=== PATIENT | female | born 1940 | race Caucasian/White ===

== ENCOUNTER 2018-06-13 11:24 | Inpatient (IN) | payer MEDICARE ==
[~2018-06-13] VITALS: Ht 152.4 cm; Wt 56.2 kg
[2018-06-13] MEDS ORDERED: ONDANSETRON HCL/PF 4 MG/2 ML VIAL IVP ONE (11:30)
--- NOTE | 2018-06-13 11:40 | NUR ---
BIB [facility] FOR [facility], AT HOME, PT STATES "I TOOK TOO MUCH DILAUDID", C/O NAUSEA. DENIES PAIN. TO ER BED , HOOKED TO MONITOR, CHANGED TO GOWN, PROVIDED W WARM BLANKET, AWAITING MD HOPKINS.
--- NOTE | 2018-06-13 11:41 | NUR ---
DR BARKER AT BEDSIDE
[2018-06-13 11:59] LABS: BASOPHILS % (AUTO) 0.2 % (0.0-2.0); HEMATOCRIT 43 % (33-45); HEMOGLOBIN 14.1 g/dL (11.5-14.8); LYMPHOCYTES # (AUTO) 0.6 /CMM (0.8-4.8); LYMPHOCYTES % (AUTO) 4.8 % (20.0-44.0); MEAN CORPUSCULAR HGB CONC 33 g/dl (31.0-36.0); MEAN CORPUSCULAR VOLUME 92 fL (82-100); MONOCYTES # (AUTO) 0.6 /CMM (0.1-1.30); MONOCYTES % (AUTO) 4.4 % (2.0-12.0); NEUTROPHILS # (AUTO) 11.8 /CMM (1.8-8.9); NEUTROPHILS % (AUTO) 90.6 % (43.0-81.0); PLATELET COUNT (AUTO) 234 /CMM (150-450); RED BLOOD CELL COUNT(AUTO) 4.71 MIL/uL (4.0-5.2)
[2018-06-13 12:06] LABS: CALCIUM, SERUM 9.7 mg/dL (8.5-10.1); CARBON DIOXIDE 30 mmol/L (21-32); CHLORIDE 101 mmol/L (98-107); CREATININE 0.9 mg/dL (0.6-1.3); GLUCOSE 136 mg/dL (74-106); POTASSIUM 3.6 mmol/L (3.5-5.1); SODIUM SERUM 141 mmol/L (136-145); UREA NITROGEN, BLOOD 20 mg/dL (7-18)
[2018-06-13] MEDS ORDERED: ONDANSETRON HCL/PF 4 MG/2 ML VIAL ONE (12:06)
--- NOTE | 2018-06-13 12:08 | NUR ---
CALLED [employer]. TUBE FILLER WAS PAGED.
[2018-06-13 12:12] LABS: ALANINE AMINOTRANSFERASE 152 U/L (12-78); ALBUMIN 4.1 g/dL (3.4-5.0); ALKALINE PHOSPHATASE 97 U/L (46-116); ASPARTATE AMINOTRANSFERASE 173 U/L (15-37); BILIRUBIN,DIRECT 0.2 mg/dL (0.0-0.2); BILIRUBIN,TOTAL 0.8 mg/dL (0.2-1.0); TOTAL PROTEIN, SERUM 7.6 g/dL (6.4-8.2)
--- NOTE | 2018-06-13 12:45 | NUR ---
URINE SPECIMEN COLLECTED SENT TO LAB.
--- NOTE | 2018-06-13 12:48 | NUR ---
WHEELED OUT VIA [facility] FOR CT SCAN.
[2018-06-13 12:52] LABS: APPEARANCE,URINE Clear (CLEAR); BILIRUBIN,URINE Negative (NEGATIVE); BLOOD, URINE Trace-lysed Ery/uL (NEGATIVE); COLOR,URINE Yellow (YELLOW); KETONES,URINE 15 (NEGATIVE); LEUKOCYTE ESTERASE ,URINE Small (NEGATIVE); NITRITE, URINE Negative (NEGATIVE); PROTEIN,URINE 100 mg/dl (NEGATIVE); UGLUCOSE Negative (NEGATIVE)
[2018-06-13 12:54] LABS: WBC,URINE 21-50 /HPF (0-3)
[2018-06-13 12:55] LABS: BACTERIA,URINE Moderate /HPF (None Seen); SQUAMOUS EPITHELIAL CELL,UR Many /HPF (None Seen)
--- NOTE | 2018-06-13 14:03 | NUR ---
TELE BED 324-1 GIVEN
--- NOTE | 2018-06-13 14:18 | NUR ---
REPORT GIVEN TO BLAIR BERNABE OF TELE UNIT
--- NOTE | 2018-06-13 14:38 | NUR ---
MS SUPERVISOR FOOD CHECKERS AND CASHIERS NOTES Received Patient comfortable and resting in bed from ER with FRIEND at bedside. A/O x 3 with episodes of confusion. VS stable with no acute distress. Breathing even and unlabored with SPO2 at 98% on room air with no respiratory distress. Skin intact. Facial, shoulder and left arm discoloration noted. Pictures taken and placed in chart. 20g PIV on RIGHT HAND clean, dry, intact and flushing well. IVF NS running at 75ml/hr. Safety precautions in place. Sitter at bedside. Bed locked and set to lowest position with side rails x 2 up. All needs rendered at this time. Will continue to monitor.
[2018-06-13 15:22] VITALS: BP 166/90
[2018-06-13] MEDS ORDERED: HYDROCODONE/APAP 5/325MG 1 EACH TABLET PO PRN (17:00)
[2018-06-13] MEDS ORDERED: Z GUARD REMEDY 2 OZ OINT TP PRN (17:00)
[2018-06-13] MEDS ORDERED: MAG HYDROX/AL HYDROX/SIMETH 30 ML UDC PO PRN (17:00)
[2018-06-13] MEDS ORDERED: ZOLPIDEM TARTRATE 5 MG TABLET PO PRN (17:00)
[2018-06-13] MEDS ORDERED: MAGNESIUM HYDROXIDE 30 ML UDC PO PRN (17:00)
[2018-06-13] MEDS ORDERED: ACETAMINOPHEN 325 MG TABLET PO PRN (17:00)
[2018-06-13] MEDS: IV NS 0.9% 1,000 ML IV PRN (17:43)
[2018-06-13] MEDS: CEFTRIAXONE 1 G in IV D5W 50 ML IV SCH (17:43)
--- NOTE | 2018-06-13 19:25 | NUR ---
BULK SUGAR HANDLER OPENING NOTES: RECEIVED PT ON ROOM AND IS TOLERATING WELL. SITTER AT BEDSIDE. PT IS A/OX2. PT HAS R HAND #20G AND IS BEING INFUSED WITH IV NS AT 75ML/HR. PT ON TELE BOX AND READING SHOWS SR 95. SITTER AT BEDSIDE. BED KEPT IN LOW, LOCKED POSITION, AND SIDE RAILS X 2UP. WILL CONTINUE TO MONITOR PT.
--- NOTE | 2018-06-13 19:26 | NUR ---
MS RN CLOSING NOTES Patient comfortable and resting in bed. A/O x 3 with episodes of confusion. VS stable with no acute distress. Breathing even and unlabored on room air with no respiratory distress. Skin intact. Facial, shoulder and left arm discoloration noted. 20g PIV on RIGHT HAND clean, dry, intact and flushing well. IVF NS running at 75ml/hr. Safety precautions in place. Sitter at bedside. Bed locked and set to lowest position with side rails x 2 up. All needs rendered at this time. Will endorse plan of care to oncoming shift.
[2018-06-13 20:00] VITALS: BP 158/87
[2018-06-13] MEDS: ONDANSETRON HCL/PF 4 MG/2 ML VIAL IVP PRN (20:19)
--- NOTE | 2018-06-13 20:31 | NUR ---
MS BERNABE NOTES: PT COMPLAINING OF NAUSEA. PT WAS ADMINISTERED ZOFRAN 4 MG IV. WILL CONTINUE TO MONITOR. SITTER AT BEDSIDE WELL. Addendum: 06/13/18 at 2031 by GEE SILVA RN YURIY BERNABE
[2018-06-14] VITALS: BP 145/82
--- NOTE | 2018-06-14 01:35 | NUR ---
SPLICER APPRENTICE NOTES: JOY MORAN ON FLOOR; INFORMED HIM OF MOST RECENT TROPONIN 0.051 ; PER JOY MORAN, TO GET DR. RIVERS ON CASE .
[2018-06-14 04:00] VITALS: BP 166/93
--- NOTE | 2018-06-14 04:45 | NUR ---
JET PILOT NOTES: WHEN ASKED IF SHE IS IN PAIN, PT DENIES ANY PAIN. PT ATTEMPTING TO GET OUT OF BED. REORIENTED PT.
[2018-06-14] MEDS: IV NS 0.9% 1,000 ML IV PRN (05:59)
[2018-06-14 06:48] VITALS: BP 150/80
[2018-06-14 07:28] LABS: BASOPHILS % (AUTO) 0.3 % (0.0-2.0); HEMATOCRIT 41 % (33-45); HEMOGLOBIN 13.5 g/dL (11.5-14.8); LYMPHOCYTES # (AUTO) 0.8 /CMM (0.8-4.8); MEAN CORPUSCULAR HGB CONC 33 g/dl (31.0-36.0); MEAN CORPUSCULAR VOLUME 91 fL (82-100); MONOCYTES # (AUTO) 0.8 /CMM (0.1-1.30); MONOCYTES % (AUTO) 6.1 % (2.0-12.0); NEUTROPHILS # (AUTO) 11.3 /CMM (1.8-8.9); NEUTROPHILS % (AUTO) 87.6 % (43.0-81.0); PLATELET COUNT (AUTO) 223 /CMM (150-450); WHITE BLOOD COUNT (AUTO) 12.9 K/uL (4.3-11.0)
--- NOTE | 2018-06-14 07:34 | NUR ---
TELE/RN OPENING NOTE PATIENT IN BED IN STABLE CONDITION. A/O X 3, NO SIGNS OF ACUTE DISTRESS. NO COMPLAIN OF PAIN OR DISCOMFORT. ON TELE MONITOR NOTED WITH SR 79. ALL NEEDS ATTENDED TO. CALL LIGHT WITHIN REACH. WILL CONTINUE TO MONITOR TO ENSURE SAFETY.
[2018-06-14 07:53] LABS: CHOLESTEROL 175 mg/dL (<200); HDL CHOLESTEROL 93 mg/dL (40-60); LDL 66 mg/dL (0-99); THYROID STIMULATING HORMONE 1.681 uIU/mL (0.358-3.74); TRIGLYCERIDES 63 mg/dL (30-150)
[2018-06-14 07:59] LABS: ALANINE AMINOTRANSFERASE 86 U/L (12-78); ALBUMIN 3.3 g/dL (3.4-5.0); ALKALINE PHOSPHATASE 73 U/L (46-116); ASPARTATE AMINOTRANSFERASE 68 U/L (15-37); B-TYPE NATRIURETIC PEPTIDE 610 PG/ML (0-125); BILIRUBIN,TOTAL 0.6 mg/dL (0.2-1.0); CALCIUM, SERUM 8.9 mg/dL (8.5-10.1); CARBON DIOXIDE 30 mmol/L (21-32); CHLORIDE 100 mmol/L (98-107); CREATININE 0.8 mg/dL (0.6-1.3); GLUCOSE 109 mg/dL (74-106); MAGNESIUM 1.5 mg/dL (1.8-2.4); PHOSPHORUS 1.8 mg/dL (2.5-4.9); POTASSIUM 3.6 mmol/L (3.5-5.1); SODIUM SERUM 138 mmol/L (136-145); TOTAL PROTEIN, SERUM 6.3 g/dL (6.4-8.2); UREA NITROGEN, BLOOD 34 mg/dL (7-18)
[2018-06-14 08:30] VITALS: BP 157/75
[2018-06-14] MEDS: Magnesium 1GM/D5W 100ML PREMIX 100 ML IV SCH ×2 (09:42→10:54)
[2018-06-14] MEDS: NITROGLYCERIN 30 GM TUBE TP SCH ×2 (11:57→21:45)
[2018-06-14] MEDS ORDERED: Sodium Phosphate 15 MMOL in IV D5W 250 ML IV ONE (12:00)
--- NOTE | 2018-06-14 14:46 | NUR ---
MS/RN RECEIVED CALL FROM DR NOVAK GI DOCTOR WITH NEW ORDER FOR XR ESOPHAGRAM TODAY. NOTED AND CARRIED OUT PATIENT NOTIFIED.
[2018-06-14] MEDS: CEFTRIAXONE 1 G in IV D5W 50 ML IV SCH (16:38)
--- NOTE | 2018-06-14 17:24 | NUR ---
MS/RN SPOKE WITH NOÉ FROM RADIOLOGY DEPT. PER NOÉ THE XR ESOPHAGRAM WILL BE DONE TOMORROW SECONDARY TO NO RADIOLOGIST AVAILABLE AT THIS TIME, ALSO TO KEEP PATIENT NPO POST MIDNIGHT. SPOKE WITH DR NOVAK AND NOTIFIED REGARDING XR ESOPHAGRAM SCHEDULED FOR TOMORROW PER DR NOVAK AGREE WITH SCHEDULE CHANGE AND ALSO ORDERED TO START PATIENT ON CLEAR LIQUID DIET. PATIENT NOTIFIED.
--- NOTE | 2018-06-14 18:06 | NUR ---
MS/RN CLOSING NOTE PATIENT IN BED IN STABLE CONDITION. A/O X 1-2. NO SIGNS OF ACUTE DISTRESS. NO COMPLAIN OF PAIN OR DISCOMFORT. ALL NEEDS ATTENDED TO. CALL LIGHT WITHIN REACH. WILL ENDORSE TO NEXT SHIFT FOR CONTINUITY OF CARE.
--- NOTE | 2018-06-14 19:45 | NUR ---
MS DEMONSTRATOR SALES INITIAL NOTES RECEIVED PT IN BED RESTING BUT AROUSE TO TOUCH, NOT IN ANY DISTRESS NOTED. RESPIRATION EVEN AND NON-LABORED. SKIN NOTED SOME BRUISING ON HER LEFT SIDE OF HER FACE AND HER SHOULDER. IVF NS AT 75ML/HR STILL INFUSING ON HER RIGHT HAND PATENT AND INTACT. RE-ORIENTED WHERE SHE AT. ON SEMI FOWLERS POSITION WITH SIDE RAILS X2 UP AND BED IN LOW AND LOCK IN POSITION. SITTER AT THE BEDSIDE FOR SAFETY. WILL CONTINUE MONITORING.
[2018-06-14 20:00] VITALS: BP 146/76
--- NOTE | 2018-06-15 | NUR ---
MS CONSUMER SCIENCE TEACHER NOTES PT RESTING COMFORTABLY IN BED WITHOUT ANY SIGNS OF DISTRESS NOTED. IVF STILL INFUSING. KEPT HER WARM AND COMFORTABLE AT ALL TIMES. WILL CONTINUE MONITORING.
--- NOTE | 2018-06-15 03:00 | NUR ---
ms roxi notes pt remains sleeping comfortably in bed without any distress noted. IVF still infusing. kept her warm and comfortable at all times. sitter at the bedside for pt safety.
[2018-06-15] MEDS: IV NS 0.9% 1,000 ML IV PRN (04:15)
--- NOTE | 2018-06-15 06:55 | NUR ---
ms manufacturing director closing notes pt morning care done as well as skin care . reposition her for comfort. respiration even and non-labored, not in any distress noted. Stable and slept well dillon the night. No agitation noted dillon the night. kept her warm and comfortable at all times. IVF NS at 75ml./hr still infusing on her right hand patent and intact. on semi fowlers position with side rails x2 up. Sitter at the bedside for pt safety. will endorse to am nurse for continuity of care. place call light at reach.
[2018-06-15 07:57] VITALS: BP 169/85
--- NOTE | 2018-06-15 08:00 | NUR ---
RN NOTES RECEIVED PATIENT IN THE BED A/O X2/3, PATIENT STABLE LYING IN THE BED NO ACUTE RESPIRATORY DISTRESS. PATIENT NPO FOR X-RAY ESOPHAGUS . INFUSING NS AT 75 ML/HR INTACT ON RIGHT ARM. PATIENT REFUSED PAIN AT THIS TIME, QUIET, COOPERATIVE, V/S TAKEN ADMINISTERED SCHEDULED MEDICATION. ASSIST PATIENT TURN AND REPOSTION Q 2 HR. PATIENT INCONTINENT USING DIAPER, APPLIED Z-GUARD , CALL LIGHT WITHIN TO REACH. 1:1 SITTER NEXT TO THE BED FOR SAFETY.
[2018-06-15] MEDS: NITROGLYCERIN 30 GM TUBE TP SCH ×2 (08:24→20:44)
[2018-06-15 09:11] LABS: BASOPHILS % (AUTO) 0.2 % (0.0-2.0); EOSINOPHILS % (AUTO) 0.1 % (0.0-6.0); HEMATOCRIT 43 % (33-45); HEMOGLOBIN 14.3 g/dL (11.5-14.8); LYMPHOCYTES # (AUTO) 0.9 /CMM (0.8-4.8); LYMPHOCYTES % (AUTO) 6.4 % (20.0-44.0); MEAN CORPUSCULAR HGB CONC 34 g/dl (31.0-36.0); MEAN CORPUSCULAR VOLUME 90 fL (82-100); MONOCYTES % (AUTO) 7.1 % (2.0-12.0); NEUTROPHILS # (AUTO) 12.4 /CMM (1.8-8.9); NEUTROPHILS % (AUTO) 86.2 % (43.0-81.0); PLATELET COUNT (AUTO) 229 /CMM (150-450); RED BLOOD CELL COUNT(AUTO) 4.72 MIL/uL (4.0-5.2); WHITE BLOOD COUNT (AUTO) 14.3 K/uL (4.3-11.0)
[2018-06-15 09:26] LABS: ALANINE AMINOTRANSFERASE 60 U/L (12-78); ALBUMIN 3.3 g/dL (3.4-5.0); ALKALINE PHOSPHATASE 73 U/L (46-116); ASPARTATE AMINOTRANSFERASE 36 U/L (15-37); BILIRUBIN,TOTAL 0.5 mg/dL (0.2-1.0); CALCIUM, SERUM 8.7 mg/dL (8.5-10.1); CARBON DIOXIDE 27 mmol/L (21-32); CHLORIDE 100 mmol/L (98-107); CREATININE 1.1 mg/dL (0.6-1.3); GLUCOSE 115 mg/dL (74-106); MAGNESIUM 1.8 mg/dL (1.8-2.4); PHOSPHORUS 2.6 mg/dL (2.5-4.9); SODIUM SERUM 139 mmol/L (136-145); TOTAL PROTEIN, SERUM 6.6 g/dL (6.4-8.2); UREA NITROGEN, BLOOD 20 mg/dL (7-18)
[2018-06-15 09:44] LABS: POTASSIUM 2.8 mmol/L (3.5-5.1)
[2018-06-15] MEDS ORDERED: BARIUM SULFATE 98% 135 ML SUSP.RECON PO ONE (09:58)
--- NOTE | 2018-06-15 11:00 | NUR ---
rn notes patient pickling machine operator for x-ray of esophagogram at this time.
[2018-06-15] MEDS ORDERED: POTASSIUM CHLORIDE 10 MEQ/50 ML PREMIXED IVPB FOR PERIPHERAL LINE IV ONE (11:30)
--- NOTE | 2018-06-15 11:30 | NUR ---
RN NOTES PATIENT BACK FROM X-RAY STABLE. GET CALL FROM LAB LOW KCL 2.8 . NOTIFIED WILSTAIN WORK MANAGER AND GET ORDER IV KCL 4 BAGS 10 MEQ, ORDER TAKEN AND CARRIED OUT.
[2018-06-15] MEDS: POTASSIUM CL. PREMIX PERIPHER. 50 ML IV SCH ×4 (11:44→17:37)
--- NOTE | 2018-06-15 12:46 | NUR ---
RN NOTES PATIENT STABLE EATING LUNCH BY ASSIST OF CHILD DEVELOPMENT ASSISTANT, INFUSING KCL 10MEQAT. PATIENT COMFORTABLE , REFUSED SUMA. ASSIST TURN AND REPOSITION Q 2 HR. SAFETY PRECAUTION MAINTAINED ALL THE TIME.
--- NOTE | 2018-06-15 13:50 | NUR ---
RN NOTES SEEN PATIENT BY GI MD TREVINO, NO NEW PREREDUCES FOR GI, NEW ORDER CHANGE DIET ADVANCE , AND FOLLOW UP.
--- NOTE | 2018-06-15 13:58 | NUR ---
RN NOTES PATIENT WITH PT AT THIS TIME WALKING IN TH HALLWAY, USING WALKER, SAFETY PRECAUTION MAINTAINED ALL THE TIME.
[2018-06-15] MEDS ORDERED: TRAMADOL HCL 50 MG TABLET PO ONE (16:00)
[2018-06-15] MEDS: CEFTRIAXONE 1 G in IV D5W 50 ML IV SCH (16:46)
[2018-06-15] MEDS: ONDANSETRON HCL/PF 4 MG/2 ML VIAL IVP PRN (17:35)
--- NOTE | 2018-06-15 17:36 | NUR ---
RN NOTES PATIENT HAS N/V AT THIS TIME , ADMINISTERED ZOFRAN 4 MG/ML IV PUSH.
[2018-06-15 18:19] VITALS: BP 165/95
--- NOTE | 2018-06-15 18:35 | NUR ---
RN NOTES MEDICATION WERE ADMINISTERED FOR PAIN, AND NAUSEA EFFECTIVE, PATIENT STABLE,, INFUSING NS AT 75 ML/HE ON RIGHT WRIST, INTACT, ASSIST PATIENT TURN AND REPOSTION Q 2 HR, NEEDS ATTENDED AND ANTICIPATED, SAFETY PRECAUTION MAINTAINED ALL THE TIME. V/S TAKEN AND FOLLOWED AT. ENDORSED ONCOMING NURSE FOR PLAN OF CARE.
--- NOTE | 2018-06-15 19:10 | NUR ---
MS COMMERCIAL PARTS PROFESSIONAL INITIAL NOTES RECEIVED REPORT FROM AM NURSE SANJEEV, AND SEEN PT IN BED RESTING WITH EYES CLOSED , RESPIRATION EVEN AND NON-LABORED NOT IN ANY ACUTE DISTRESS NOTED AT THIS TIME. STILL WITH POTASSIUM IVP BAG STILL INFUSING. NO SIGNS OF ANY REDNESS ON IV SITE. KEPT HER WARM AND COMFORTABLE AT ALL TIMES. SITTER AT THE BEDSIDE FOR SAFETY. PLACE CALL LIGHT AT REACH.
[2018-06-15 20:34] VITALS: BP 173/99
[2018-06-16] VITALS: BP 154/85
--- NOTE | 2018-06-16 01:10 | NUR ---
MS TRAINING AND DEVELOPMENT REP NOTES PT REMAIN SLEEPING , NO SOB NOTED NO SIGNS OF ANY DISTRESS NOTED. IVF NS AT 75ML/HR STILL INFUSING. KEPT HER WARM AND COMFORTABLE AT ALL TIMES. SITTER AT THE BEDSIDE FOR SAFETY.
[2018-06-16] MEDS: IV NS 0.9% 1,000 ML IV PRN (01:19)
[2018-06-16] MEDS ORDERED: TRAMADOL HCL 50 MG TABLET PO ONE (05:00)
--- NOTE | 2018-06-16 07:30 | NUR ---
MS LICENSED PESTICIDE APPLICATOR CLOSING NOTES PT AWAKE AND ALERT WATCHING TV AT THIS TIME. DENIES ANY PAIN OR ANY DISCOMFORT. STABLE JACOBO THE NIGHT AND SLEPT WELL. IVF STILL INFUSING. NO AGITATION NOTED. SITTER AT THE BEDSIDE FOR SAFETY. ENDORSE TO AM NURSE FOR CONTINUITY OF CARE.
--- NOTE | 2018-06-16 07:41 | NUR ---
MS RN OPENING NOTES RECEIVED PT AWAKE, A/O X2-3. TOLERATING RA, WITH NO ACUTE RESPIRATORY DISTRESS NOTED. DENIES ANY PAIN AT THIS MOMENT. PT DENIES ANY CONCERNS OR QUESTIONS WELL. HOB ELEVATED. IVF NS AT 75ML/HR TO RIGHT HAND G22, INTACT AND FLUID INFUSING WELL. PT KEPT COMFORTABLE. PT'S BED IN LOWEST, LOCKED POSITION WITH SR X2. CALL LIGHT AND FLUID KEPT WITHIN REACH. WILL CONTINUE PLAN OF CARE.
[2018-06-16 08:00] VITALS: BP 159/94
--- NOTE | 2018-06-16 08:53 | NUR ---
MS RN NOTES PT SEEN BY SURVEY TECHNOLOGIST MYKE. SPOKE TO PT REGARDING FOR PLAN OF DISCHARGE AND SNF PLACEMENT. PT AWARE AND AGREED TO THE PLAN. WILL CONTINUE TO MONITOR.
[2018-06-16 09:02] LABS: BASOPHILS % (AUTO) 0.2 % (0.0-2.0); EOSINOPHILS % (AUTO) 0.1 % (0.0-6.0); HEMATOCRIT 41 % (33-45); HEMOGLOBIN 13.8 g/dL (11.5-14.8); LYMPHOCYTES % (AUTO) 7.3 % (20.0-44.0); MEAN CORPUSCULAR HGB CONC 33 g/dl (31.0-36.0); MEAN CORPUSCULAR VOLUME 90 fL (82-100); MONOCYTES # (AUTO) 1.1 /CMM (0.1-1.30); MONOCYTES % (AUTO) 7.4 % (2.0-12.0); NEUTROPHILS # (AUTO) 12.2 /CMM (1.8-8.9); PLATELET COUNT (AUTO) 209 /CMM (150-450); RED BLOOD CELL COUNT(AUTO) 4.58 MIL/uL (4.0-5.2); WHITE BLOOD COUNT (AUTO) 14.4 K/uL (4.3-11.0)
[2018-06-16] MEDS: NITROGLYCERIN 30 GM TUBE TP SCH ×2 (09:09→20:58)
[2018-06-16 09:19] LABS: CALCIUM, SERUM 8.6 mg/dL (8.5-10.1); CARBON DIOXIDE 23 mmol/L (21-32); CHLORIDE 103 mmol/L (98-107); CREATININE 2.9 mg/dL (0.6-1.3); GLUCOSE 120 mg/dL (74-106); MAGNESIUM 1.8 mg/dL (1.8-2.4); PHOSPHORUS 3.2 mg/dL (2.5-4.9); POTASSIUM 3.9 mmol/L (3.5-5.1); SODIUM SERUM 140 mmol/L (136-145); UREA NITROGEN, BLOOD 37 mg/dL (7-18)
--- NOTE | 2018-06-16 10:47 | NUR ---
MS RN NOTES US OF KIDNEYS WAS DONE ORDERED BY DR. RIVERS. RESULTED PT RETAINING 660ML OF URINE. ADVISED TO INFORM PRIMARY. ASSISTANT GROCERY STORE MANAGER LW HOSPITALIST MADE AWARE. AWAITING FOR RESPONSE.
--- NOTE | 2018-06-16 11:30 | NUR ---
MS RN NOTES EXPERIMENTAL ROCKETSLED MECHANIC LW ORDERED TO INSERT FC. FC 16FR INSERTED AT 1125. DARINING CLEAR YELLOW RUINE IN THE BAG. WILL CONTINUE TO MONITOR.
--- NOTE | 2018-06-16 11:35 | NUR ---
MS RN NOTES SURGICAL SERVICES DIRECTOR LW AWARE OF DR RIVERS'S DECISION OF DISCONTINUING IV ROCEPHIN FOR UTI. NO ORDERS NOTED AT THIS THIME. ELEUTERIO.BEHZAD AWARE WELL.
--- NOTE | 2018-06-16 12:28 | NUR ---
SW received a call from pt's RN Denise informing SW that she received a call from pt's friend Stephania who would like to speak with the SW. SW called Stephania and left her a voicemail message.
--- NOTE | 2018-06-16 14:29 | NUR ---
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 Per Stephania, pt. was independent with her ADL's and [place] the market on a regular [place]. Pt. has ACCESS services that she utilized to take to her doctor appointments. Pt. is supporting her son financially. According to Stephania, pt's son Armin is impossible and doesn't not follow up with any of his appointments etc. SARA informed Stephania due to HIPAA she cannot disclose information regarding the pt's current condition and medical diagnosis. Stephania understood and informed SARA she wanted to call SARA to give her some background information regarding pt's home situation with her son. SARA update protective services case worker Adelso with the aforementioned information.
--- NOTE | 2018-06-16 14:50 | NUR ---
RN NOTES PT SEEN BY DR NOVAK. SCHEDULED FOR EGD TOMORROW. SWALLOW EVAL STAT. CN AWARE. WILL CONTINUE TO MONITOR.
[2018-06-16 17:00] VITALS: BP 160/90
--- NOTE | 2018-06-16 17:09 | NUR ---
MS RN NOTES PT HAS NOBODY/NEXT OF KIN TO SIGN CONSENTS FORM FOR SCHEDULED EGD TOMORROW. ELEUTERIO/BEHZAD MADE AWARE. AND WILL FOLLOW UP WITH 2 [facility] DO[facility] TO SIGN CONSENT FOR PT. WILL ENDORSE TO INCOMING NURSE WELL.
[2018-06-16] MEDS: LEVOFLOXACIN 250 MG /D5W 50 ML 250 MG in PREMIX 1 EA IV SCH (19:14)
--- NOTE | 2018-06-16 19:22 | NUR ---
MS RN CLOSING NOTES PT REMAINS IN BED AWAKE, A/O X2-3. TOLERATING RA, WITH NO ACUTE RESPIRATORY DISTRESS NOTED. DENIES ANY PAIN AT THIS MOMENT. PT DENIES ANY CONCERNS OR QUESTIONS WELL. PT HAS SITTER 1:1. HOB ELEVATED. IVF NS AT 75ML/HR TO RIGHT HAND G22, INTACT AND FLUID INFUSING WELL. ON GOING LEVAQUIN IV, INFUSING WELL. ALL NEEDS AND CARE PROVIDED. PT SCHEDULED FOR EGD JOANIE WITH DR NOVAK. MD NOVAK AND JOY DORAN AWARE OF THE PT'S UNABLE TO SIGN. JOY DORAN AGREED TO SIGN THE CONSENT IN THE AM; CN AWARE WELL. NPO POST MIDNIGHT. FC IN PLACE WITH CLEAR YELLOW URINE WITH TOTAL OUTPUT OF 1600ML. PT KEPT COMFORTABLE. PT'S BED IN LOWEST, LOCKED POSITION WITH SR X2. CALL LIGHT AND FLUID KEPT WITHIN REACH. ENDORSED TO NIGHT NURSE FOR JUSTYN.
--- NOTE | 2018-06-16 19:30 | NUR ---
MS PERPETUAL INVENTORY CLERK INITIAL NOTES GOT REPORT FORM AM NURSE AND PT SITTING WHILE EATING SOME ICE CHIPS , NO ASPIRATION NOTED AT HIS TIME. PATIENT DENIES ANY PAIN OR ANY DISCOMFORT. RE-ORIENTED WHERE SHE AT . BREATHING EVEN AND NON-LABORED. CASTANEDA TO GRAVITY WITH CLEAR YELLOW OUTPUT NOTED . SKIN WARM AND DRY TO TOUCH. KEPT HER WARM AND COMFORTABLE AT ALL TIMES. SITTER AT THE BEDSIDE FOR SAFETY. WILL CONTINUE MONITORING.
[2018-06-16 20:00] VITALS: BP 139/78
--- NOTE | 2018-06-16 22:17 | NUR ---
ms roxi notes pt fall asleep after giving sponges bath, respiration even and non-labored. not in any distress noted. kept her warm and comfortable at all times. will continue monitoring.
[2018-06-17] MEDS: IV NS 0.9% 1,000 ML IV PRN (02:22)
--- NOTE | 2018-06-17 02:27 | NUR ---
MS DESIGN VERIFICATION ENGINEER NOTES PT ASLEEP WITHOUT ANY ACUTE DISTRESS NOTED, NPO AT THIS TIME FOR POSSIBLE EGD IN AM. KEPT HER WARM AND COMFORTABLE AT ALL TIMES. SITTER AT THE BEDSIDE FOR SAFETY.
--- NOTE | 2018-06-17 06:45 | NUR ---
MS FULFILLMENT MAIL CLERK CLOSING NOTES PT BACK TO SLEEP AFTER MORNING CARE DONE, STABLE AND SLEPT WELL JACOBO THE NIGHT. IVF NS AT 75ML/HR INFUSING AT THIS TIME. NOT IN ANY DISTRESS. RESPIRATION EVEN AND NON-LABORED. KEPT HER WARM AND COMFORTABLE AT ALL TIMES. CASTANEDA TO GRAVITY WITH CLEAR YELLOW OUTPUT NOTED. REPOSITION HER FOR COMFORT. PT ALWAYS ON SEMI FOWLERS POSITION WITH SIDE RAILS X2 UP AND BED IN LOW AND LOCK IN POSITION. SITTER AT THE BEDSIDE. WILL ENDORSE TO AM NURSE FOR CONTINUITY OF CARE.
[2018-06-17 06:55] LABS: BASOPHILS % (AUTO) 0.3 % (0.0-2.0); EOSINOPHILS % (AUTO) 2.8 % (0.0-6.0); HEMATOCRIT 40 % (33-45); HEMOGLOBIN 13.4 g/dL (11.5-14.8); LYMPHOCYTES # (AUTO) 1.6 /CMM (0.8-4.8); LYMPHOCYTES % (AUTO) 13.4 % (20.0-44.0); MEAN CORPUSCULAR HGB CONC 33 g/dl (31.0-36.0); MEAN CORPUSCULAR VOLUME 90 fL (82-100); MONOCYTES # (AUTO) 0.9 /CMM (0.1-1.30); NEUTROPHILS # (AUTO) 8.9 /CMM (1.8-8.9); NEUTROPHILS % (AUTO) 75.5 % (43.0-81.0); PLATELET COUNT (AUTO) 185 /CMM (150-450); RED BLOOD CELL COUNT(AUTO) 4.48 MIL/uL (4.0-5.2); WHITE BLOOD COUNT (AUTO) 11.8 K/uL (4.3-11.0)
--- NOTE | 2018-06-17 07:24 | NUR ---
MS RN OPENING NOTES RECEIVED RESTING IN BED, EASILY AROUSED, A/O X2-3. TOLERATING RA, WITH NO ACUTE RESPIRATORY DISTRESS NOTED. DENIES ANY PAIN AT THIS MOMENT. PT DENIES ANY CONCERNS OR QUESTIONS WELL. HOB ELEVATED. IVF NS AT 75ML/HR TO RIGHT HAND G22, INTACT AND FLUID INFUSING WELL. PT KEPT COMFORTABLE. PT'S BED IN LOWEST, LOCKED POSITION WITH SR X2. CALL LIGHT AND FLUID KEPT WITHIN REACH. NIGHT NURSE STATED SWALLOW EVAL FIRST BEFORE DOING THE EGD TEST. WILL CONTINUE PLAN OF CARE.
--- NOTE | 2018-06-17 07:25 | NUR ---
MS RN NOTES FC IN PLACE WITH CLEAR YELLOW URINE NOTED IN THE BAG. PT HAS 1:1 SITTER BEDSIDE. WILL CONTINUE TO MONITOR.
[2018-06-17 07:31] LABS: ALANINE AMINOTRANSFERASE 33 U/L (12-78); ALBUMIN 2.9 g/dL (3.4-5.0); ALKALINE PHOSPHATASE 63 U/L (46-116); ASPARTATE AMINOTRANSFERASE 20 U/L (15-37); BILIRUBIN,TOTAL 0.5 mg/dL (0.2-1.0); CALCIUM, SERUM 8.9 mg/dL (8.5-10.1); CARBON DIOXIDE 28 mmol/L (21-32); CHLORIDE 100 mmol/L (98-107); CREATININE 0.7 mg/dL (0.6-1.3); GLUCOSE 103 mg/dL (74-106); MAGNESIUM 1.5 mg/dL (1.8-2.4); PHOSPHORUS 1.8 mg/dL (2.5-4.9); SODIUM SERUM 137 mmol/L (136-145); UREA NITROGEN, BLOOD 16 mg/dL (7-18)
--- NOTE | 2018-06-17 07:35 | NUR ---
MS RN NOTES CALLED DR NOVAK TO VERIFY TIME FOR PLANNED EGD TODAY FOR PT. DR NOVAK ANSWERED NO EGD TODAY, PT JUST NEED SWALLOW EVAL TODAY. WILL LET RN DOCUMENTATION LW KNOW. WILL CONTINUE TO MONITOR.
[2018-06-17 08:00] VITALS: BP 131/89
[2018-06-17] MEDS ORDERED: POTASSIUM PHOSPHATE MM 15 MMOL in IV D5W 250 ML IV SCH (08:30)
[2018-06-17] MEDS: Magnesium 1GM/D5W 100ML PREMIX 100 ML IV SCH ×2 (08:36→10:05)
[2018-06-17] MEDS: NITROGLYCERIN 30 GM TUBE TP SCH ×2 (08:38→22:41)
[2018-06-17] MEDS: POTASSIUM PHOSPHATE MM 7.5 MMOL in IV D5W 100 ML IV SCH ×2 (09:22→12:23)
--- NOTE | 2018-06-17 09:56 | NUR ---
MS RN NOTES PT SEEN BY PROGRAMMING DEVELOPMENT PROJECT MANAGER LW. ORDERED TO TAKE OUT FC AT THIS TIME, MONITOR FOR 6 HOURS, IF NO URINE OUTPUT, BLADDER SCAN AND IF IT'S MORE THAN 400ML, NOTIFY HER. MASON TENDER RESTORATION LABOR/SITTER BEDSIDE MADE AWARE WELL. WILL CONTINUE TO MONITOR.
--- NOTE | 2018-06-17 10:53 | NUR ---
MS RN NOTES PT HAD PHYSICAL THERAPY, WALKED WITH WALKER AND 1 ASSIST.
[2018-06-17] MEDS: POTASSIUM CL. PREMIX PERIPHER. 50 ML IV SCH ×4 (11:08→16:02)
--- NOTE | 2018-06-17 14:00 | NUR ---
MS RN NOTES RIGHT HAND PIV, DISLODGED AROUNG 1245. STARTED PIV TO LFA G22, FLUSHED WITH NS, INTACT AND OPERATIONAL. WILL CONTINUE TO MONITOR.
[2018-06-17 16:00] VITALS: BP 139/65
--- NOTE | 2018-06-17 16:06 | NUR ---
MS RN NOTES PT HASN'T VOIDED YET SINCE FC HAS REMOVED. SCANNED BLADDER, 338ML RETAINED. FRONT END SOFTWARE DEVELOPER LW MADE AWARE. ORDERED BLADDER SCAN [id number], IF URINE OUTPUT MORE THAN 300ML, DO STRAIGHT CATH I&O.
--- NOTE | 2018-06-17 16:45 | NUR ---
MS RN NOTES STRAIGHT CATH WAS DONE, URINE OUTPUT OF CLEAR YELLOW URINE, 320ML. WILL ENDORSE TO INCOMING NIGHT NURSE.
[2018-06-17] MEDS: LEVOFLOXACIN 250 MG /D5W 50 ML 250 MG in PREMIX 1 EA IV SCH (17:37)
--- NOTE | 2018-06-17 18:47 | NUR ---
MS RN CLOSING NOTES PT REMAINS RESTING IN BED, AWAKE, A/O X2-3. TOLERATING RA, WITH NO ACUTE RESPIRATORY DISTRESS NOTED. DENIES ANY PAIN AT THIS MOMENT. PT DENIES ANY PAIN. HOB ELEVATED. ASPIRATION PRECAUTIONS, PT NOW ON FULL LIQUIDS. PT HAS 1:1 SITTER BEDSIDE. IVF NS AT 75ML/HR TO LEFT FOREARM G22, INTACT AND FLUID INFUSING WELL. PT KEPT COMFORTABLE. ON BLADDER SCAN Q4H; S/P FC REMOVAL. ALL NEEDS AND CARE PROVIDED. PT'S BED IN LOWEST, LOCKED POSITION WITH SR X2. CALL LIGHT AND FLUID KEPT WITHIN REACH. WILL ENDORSE TO SAFETY TRAINER NURSE FOR JUSTYN.
--- NOTE | 2018-06-17 19:50 | NUR ---
RN OPENING NOTES RECEIVED REPORT FROM EMIYLNJFT RNREED. FOUND Pt AWAKE, RESTING IN BED. RESPIRATIONS EVEN AND UNLABORED. Pt IS A/OX1-2, VERBAL, ABLE TO MAKE NEEDS KNOWN, BUT IS VERY FORGETFUL; BASELINE DEMENTIA. SITTER IN ROOM. NO S/S OF ACUTE DISTRESS OR SOB NOTED. IV ACCESS ON LFA #22G, IVF NS@75ML/HR. SAFETY MEASURES IN PLACE. BED LOW, LOCKED, HOB ELEVATED, SIDE RAILS UP, CALL LIGHT AND BEDSIDE TABLE WITHIN REACH. WILL CONTINUE TO MONITOR Pt's CONDITION AND SAFETY THROUGHOUT THE NIGHT.
[2018-06-17] MEDS: ONDANSETRON HCL/PF 4 MG/2 ML VIAL IVP PRN (20:42)
--- NOTE | 2018-06-18 01:00 | NUR ---
RN NOTES Pt REFUSED BLADDER SCANNER AT THIS TIME.
--- NOTE | 2018-06-18 06:30 | NUR ---
RN NOTES BLADDER SCANNER >417CC. STRAIGHT CATH URINE OUTPUT 600CC.
[2018-06-18] MEDS: IV NS 0.9% 1,000 ML IV PRN (06:33)
--- NOTE | 2018-06-18 06:40 | NUR ---
RN CLOSING NOTES NO SIGNIFICANT CHANGES IN Pt's CONDITION. Pt REMAINS STABLE AT THIS TIME. NO S/S OF ACUTE DISTRESS OR SOB NOTED DURING THE NIGHT. ALL NEEDS MET AND ATTENDED TO. SAFETY MEASURES IN PLACE. BED LOW, LOCKED, HOB ELEVATED, SIDE RAILS UP, CALL LIGHT AND BEDSIDE TABLE WITHIN REACH. SITTER IN ROOM. WILL ENDORSE TO DAYSHIFT RN FOR Pt's JUSTYN.
[2018-06-18 06:57] LABS: BASOPHILS % (AUTO) 0.4 % (0.0-2.0); EOSINOPHILS % (AUTO) 6.4 % (0.0-6.0); HEMATOCRIT 38 % (33-45); HEMOGLOBIN 12.4 g/dL (11.5-14.8); LYMPHOCYTES # (AUTO) 1.9 /CMM (0.8-4.8); LYMPHOCYTES % (AUTO) 21.7 % (20.0-44.0); MEAN CORPUSCULAR HGB CONC 33 g/dl (31.0-36.0); MEAN CORPUSCULAR VOLUME 90 fL (82-100); MONOCYTES # (AUTO) 0.8 /CMM (0.1-1.30); MONOCYTES % (AUTO) 9.4 % (2.0-12.0); NEUTROPHILS # (AUTO) 5.4 /CMM (1.8-8.9); NEUTROPHILS % (AUTO) 62.1 % (43.0-81.0); PLATELET COUNT (AUTO) 172 /CMM (150-450); RED BLOOD CELL COUNT(AUTO) 4.16 MIL/uL (4.0-5.2); WHITE BLOOD COUNT (AUTO) 8.6 K/uL (4.3-11.0)
--- NOTE | 2018-06-18 07:15 | NUR ---
RN medsurdarrion notes Received PT from night nurse. PT is asleep but easy arousable. PT is alert and oriented X2. NO SOB. Denies any pain or any discomfort. IV on left forearm is intact, patent and flush without resistance. safety and aspiration precautions are maintained. bed at low position and call light is within reach. will continue to monitor.
[2018-06-18 07:30] LABS: CALCIUM, SERUM 8.7 mg/dL (8.5-10.1); CARBON DIOXIDE 27 mmol/L (21-32); CHLORIDE 104 mmol/L (98-107); CREATININE 0.7 mg/dL (0.6-1.3); GLUCOSE 96 mg/dL (74-106); MAGNESIUM 1.7 mg/dL (1.8-2.4); PHOSPHORUS 2.7 mg/dL (2.5-4.9); POTASSIUM 3.4 mmol/L (3.5-5.1); SODIUM SERUM 140 mmol/L (136-145); UREA NITROGEN, BLOOD 16 mg/dL (7-18)
--- NOTE | 2018-06-18 07:30 | NUR ---
RN medsurdarrion opening notes Received PT from night nurse. PT is resting in bed comfortably. PT is alert X1 and able to verbalize needs but very forgetful. PT has history of dementia. Denies pain or any discomfort. No SOB. Respiration is clear and unlabored. IV is on left forearm intact, patent and running well at 75 ml/hr. Safety precautions is maintained. bed at low position and call light is within reach.
[2018-06-18 08:00] VITALS: BP 150/80
[2018-06-18] MEDS ORDERED: POTASSIUM CHLORIDE 20 MEQ TAB.PRT.SR PO SCH (09:00)
--- NOTE | 2018-06-18 09:00 | NUR ---
RN MS NOTES PER LIBAN WHITESIDE TO CHANGE KDUR TABLETS TO KLOR CON.
[2018-06-18 09:54] VITALS: BP 150/80
[2018-06-18] MEDS: NITROGLYCERIN 30 GM TUBE TP SCH (09:54)
[2018-06-18] MEDS: Magnesium 1GM/D5W 100ML PREMIX 100 ML IV SCH ×2 (09:55→11:23)
[2018-06-18] MEDS: POTASSIUM CHLORIDE 20 MEQ POWDER PACKET PO SCH ×3 (10:38→13:22)
[2018-06-18 11:56] VITALS: BP 150/80
--- NOTE | 2018-06-18 12:00 | NUR ---
SRINIVASA mejia notes Bladder scan results 428ml. Will put straight catherer.
--- NOTE | 2018-06-18 12:50 | NUR ---
RN jackie notes PT was seen by The Nurse Practitioner Clem Mancuso. PT was retaining urine 425 ml. HUMAN SERVICE WORKER ordered to put estrella catherer for the PT. PT was informed and agree. PT no complains of pain or distress at this time. PT tolerated procedure well.
--- NOTE | 2018-06-18 14:49 | NUR ---
RN medsurg discharge notes PT is alert and oriented X2. PT is in stable condition. Pt denies any pain or discomfort. NO SOB. Meds have been given. PT D/C with estrella catherer intact and patent and draining clear urine. PT D/C to [facility]. Spoke and informed her friend Tania with PT's permission. PT verbalize understanding of D/C instructions. Skin assessment done and PT's belonging checked list. Report given to Josey BERNABE of [facility]. Picked up by 3 ambulance personnel. Left by a wandarlisset in stable condition.
== END 2018-06-18 14:45 | DRG 917 ==
LOC: ER 11:26 → TELE 14:14 → MED 06-14 11:43
PROVIDERS: ATTEND Nurse Practitioner Acute Care
DX: T50.901A Poisoning by unspecified drugs, medicaments and biological substances, accidental (unintentional), initial encounter (principal); G92 Toxic encephalopathy; N39.0 Urinary tract infection, site not specified; N17.9 Acute kidney failure, unspecified; E44.1 Mild protein-calorie malnutrition; S00.03XA Contusion of scalp, initial encounter; W18.30XA Fall on same level, unspecified, initial encounter; K22.4 Dyskinesia of esophagus; I10 Essential (primary) hypertension; F03.90 Unspecified dementia, unspecified severity, without behavioral disturbance, psychotic disturbance, mood disturbance, and anxiety; G89.4 Chronic pain syndrome; Y92.89 Other specified places as the place of occurrence of the external cause; R33.9 Retention of urine, unspecified; D72.829 Elevated white blood cell count, unspecified; K44.9 Diaphragmatic hernia without obstruction or gangrene; E87.6 Hypokalemia; E83.42 Hypomagnesemia; E83.39 Other disorders of phosphorus metabolism; Z68.24 Body mass index [BMI] 24.0-24.9, adult; R73.9 Hyperglycemia, unspecified; N13.9 Obstructive and reflux uropathy, unspecified; S09.90XA Unspecified injury of head, initial encounter; R53.1 Weakness; R13.10 Dysphagia, unspecified; B96.89 Other specified bacterial agents as the cause of diseases classified elsewhere; K21.9 Gastro-esophageal reflux disease without esophagitis; K31.89 Other diseases of stomach and duodenum
CPT/HCPCS: 36415; 70450-TC; 71045-TC; 72125-TC; 74230-TC; 76700-TC; 76770-TC; 80048-TC; 80053-TC; 80061-TC; 80076-TC; 80305; 81000-TC; 83605-TC; 83735-TC; 83880; 84100-TC; 84443-TC; 84484-TC; 85025-TC; 85730-TC; 87040-TC; 87081-TC; 87086-TC; 92526; 92611-TC; 93307-TC; 94799-TC; 97110-TC; 97116-TC; 97530-TC; A4216; A9563; G0378; J0696; J1956; J2405; J3475; J3480; J3490; J7030; J7050; J7060

== ENCOUNTER 2018-06-19 10:17 | Emergency (ER) | payer MEDICARE ==
[~2018-06-19] VITALS: Ht 162.6 cm; Wt 53.5 kg
--- NOTE | 2018-06-19 10:26 | NUR ---
DR BENITEZ AT BEDSIDE FOR EVAL.
[2018-06-19 10:38] LABS: BASOPHILS # (AUTO) 0.1 /CMM (0.0-0.2); BASOPHILS % (AUTO) 1.1 % (0.0-2.0); EOSINOPHILS % (AUTO) 5.8 % (0.0-6.0); HEMATOCRIT 39 % (33-45); HEMOGLOBIN 12.7 g/dL (11.5-14.8); LYMPHOCYTES # (AUTO) 1.6 /CMM (0.8-4.8); LYMPHOCYTES % (AUTO) 17.3 % (20.0-44.0); MEAN CORPUSCULAR HGB CONC 33 g/dl (31.0-36.0); MEAN CORPUSCULAR VOLUME 91 fL (82-100); MONOCYTES # (AUTO) 0.8 /CMM (0.1-1.30); MONOCYTES % (AUTO) 8.3 % (2.0-12.0); NEUTROPHILS # (AUTO) 6.2 /CMM (1.8-8.9); NEUTROPHILS % (AUTO) 67.5 % (43.0-81.0); PLATELET COUNT (AUTO) 203 /CMM (150-450); RED BLOOD CELL COUNT(AUTO) 4.23 MIL/uL (4.0-5.2); WHITE BLOOD COUNT (AUTO) 9.1 K/uL (4.3-11.0)
--- NOTE | 2018-06-19 10:44 | NUR ---
RADIOLOGY AT BEDSIDE FOR CHEST XRAY.
--- NOTE | 2018-06-19 10:44 | NUR ---
Tin singh in ED - 06/19/18 at 1045 by [facility] RADIOLOGY AT BEDSIDE FOR EVAL.
[2018-06-19 10:47] LABS: CALCIUM, SERUM 9.1 mg/dL (8.5-10.1); CARBON DIOXIDE 31 mmol/L (21-32); CHLORIDE 104 mmol/L (98-107); CREATININE 0.8 mg/dL (0.6-1.3); GLUCOSE 128 mg/dL (74-106); POTASSIUM 3.6 mmol/L (3.5-5.1); SODIUM SERUM 142 mmol/L (136-145); UREA NITROGEN, BLOOD 17 mg/dL (7-18)
--- NOTE | 2018-06-19 11:35 | NUR ---
CALLED COURT FOR A BLS BED LABORER. ETA IS 1230 TRIP #[id number]
--- NOTE | 2018-06-19 12:47 | NUR ---
PT TRANSPORTED BACK TO SNF IN STABLE CONDITION. TALKED TO KARO CHARGE NURSE ABOUT PLAN OF CARE.
[2018-06-19 12:51] VITALS: BP 126/68
== END 2018-06-19 12:52 | disposition home or self-care (01) ==
LOC: ER 10:17
DX: R07.89 Other chest pain (principal); I10 Essential (primary) hypertension; K21.9 Gastro-esophageal reflux disease without esophagitis; F03.90 Unspecified dementia, unspecified severity, without behavioral disturbance, psychotic disturbance, mood disturbance, and anxiety; G89.4 Chronic pain syndrome; Z87.440 Personal history of urinary (tract) infections
CPT/HCPCS: 36415; 71045-TC; 80048-TC; 84484-TC; 85025-TC

== ENCOUNTER 2024-08-04 15:04 | Inpatient (IN) | payer MEDICARE, BC, OTHER ==
[~2024-08-04] VITALS: Ht 147.3 cm; Wt 54.4 kg
[2024-08-04 16:14] LABS: BASOPHILS % (AUTO) 0.3 % (0.0-2.0); EOSINOPHILS # (AUTO) 0.1 K/uL (0.0-0.7); EOSINOPHILS % (AUTO) 0.8 % (0.0-6.0); HEMATOCRIT 37 % (33-45); LYMPHOCYTES # (AUTO) 0.9 K/uL (0.8-4.8); MEAN CORPUSCULAR HEMOGLOBIN 29 PG (26.0-33.0); MEAN CORPUSCULAR HGB CONC 33 g/dl (31.0-36.0); MEAN CORPUSCULAR VOLUME 88 fL (82-100); MONOCYTES # (AUTO) 0.5 K/uL (0.1-1.30); MONOCYTES % (AUTO) 4.8 % (2.0-12.0); NEUTROPHILS # (AUTO) 9.4 K/uL (1.8-8.9); NEUTROPHILS % (AUTO) 86.1 % (43.0-81.0); PLATELET COUNT (AUTO) 160 K/uL (150-450); RED BLOOD CELL COUNT(AUTO) 4.18 MIL/uL (4.0-5.2); RED CELL DISTRIBUTION WIDTH 14.2 % (11.5-15.0); WHITE BLOOD COUNT (AUTO) 10.9 K/uL (4.3-11.0)
[2024-08-04 16:20] LABS: POTASSIUM 4.1 mmol/L (3.5-5.1)
[2024-08-04 16:26] LABS: INR 1.08 (0.91-1.10); PARTIAL THROMBOPLASTIN TIME 28.8 SEC (24.3-34.3); PROTHROMBIN TIME 11.4 SECS (9.2-11.1)
[2024-08-04] MEDS ORDERED: UBID1CAP54 PO (18:25)
[2024-08-04] MEDS ORDERED: OMEP20TA20 PO (18:25)
[2024-08-04] MEDS ORDERED: PIME30CR6 TP (18:25)
[2024-08-04] MEDS ORDERED: CYAN-51 PO (18:25)
[2024-08-04] MEDS ORDERED: CLON0.1T PO (18:25)
[2024-08-04] MEDS ORDERED: [UNRECOGNIZED DRUG - OTHER] PO (18:25)
[2024-08-04] MEDS ORDERED: FINA5TAB11 PO (18:25)
[2024-08-04] MEDS ORDERED: LEVO75TA7 PO (18:25)
[2024-08-04] MEDS ORDERED: ASCO100058 PO (18:25)
[2024-08-04] MEDS ORDERED: LISI40TA13 PO (18:25)
[2024-08-04] MEDS ORDERED: CHOL100062 PO (18:25)
[2024-08-04] MEDS ORDERED: BIOT5000 PO (18:25)
[2024-08-04] MEDS ORDERED: ACET-868 PO (18:25)
[2024-08-04] MEDS ORDERED: SIMV-46 PO (18:25)
[2024-08-04] MEDS ORDERED: CRAN1TAB GT (18:25)
[2024-08-04] MEDS: MORPHINE SULFATE INJ 2 MG/ML DISP.SYRIN IV PRN (20:26)
[2024-08-04] MEDS ORDERED: Z GUARD REMEDY 4 OZ OINT TP PRN (20:30)
[2024-08-04] MEDS ORDERED: ACETAMINOPHEN 325 MG TABLET PO PRN (20:30)
[2024-08-04] MEDS ORDERED: MAGNESIUM HYDROXIDE 30 ML UDC PO PRN (20:30)
[2024-08-04] MEDS ORDERED: MAG HYDROX/AL HYDROX/SIMETH 30 ML UDC PO PRN (20:30)
[2024-08-04] MEDS ORDERED: ONDANSETRON HCL/PF 4 MG/2 ML VIAL IVP PRN (20:30)
[2024-08-04] MEDS: ENOXAPARIN SODIUM 30 MG/0.3 ML DISP.SYRIN SQ SCH (21:10)
[2024-08-04 22:00] VITALS: BP 152/84; TEMP 97.9; O2SAT 95
[2024-08-05 07:30] VITALS: BP 138/70; TEMP 98.2; O2SAT 99
[2024-08-05 07:44] LABS: CALCIUM, SERUM 8.7 mg/dL (8.5-10.1); CREATININE 0.9 mg/dL (0.6-1.3); MAGNESIUM 1.9 mg/dL (1.8-2.4); PHOSPHORUS 3.4 mg/dL (2.5-4.9); POTASSIUM 4.6 mmol/L (3.5-5.1)
[2024-08-05] MEDS: LEVOTHYROXINE SODIUM 75 MCG TABLET PO SCH (08:03)
[2024-08-05] MEDS: PANTOPRAZOLE 40 MG TABLET.DR PO SCH (08:03)
[2024-08-05] MEDS: ASCORBIC ACID 500 MG TABLET PO SCH (08:03)
[2024-08-05] MEDS: CYANOCOBALAMIN 500 MCG TABLET PO SCH (08:03)
[2024-08-05] MEDS: DOCUSATE SODIUM 100 MG CAPSULE PO SCH (08:03)
[2024-08-05] MEDS: SIMVASTATIN 20 MG TABLET PO SCH (08:04)
[2024-08-05] MEDS: LISINOPRIL (20MG) 20 MG TABLET PO SCH (08:04)
[2024-08-05] MEDS: CLONIDINE HCL 0.1 MG TABLET PO SCH (08:04)
[2024-08-05] MEDS: FINASTERIDE (5 MG) 5 MG TABLET PO SCH (08:04)
[2024-08-05 08:35] LABS: THYROID STIMULATING HORMONE 65.22 uIU/mL (0.358-3.74)
[2024-08-05 10:19] LABS: BASOPHILS # (AUTO) 0.1 K/uL (0.0-0.2); BASOPHILS % (AUTO) 0.7 % (0.0-2.0); EOSINOPHILS # (AUTO) 0.4 K/uL (0.0-0.7); EOSINOPHILS % (AUTO) 4.8 % (0.0-6.0); HEMATOCRIT 36 % (33-45); HEMOGLOBIN 12.1 g/dL (11.5-14.8); LYMPHOCYTES # (AUTO) 1.3 K/uL (0.8-4.8); LYMPHOCYTES % (AUTO) 14.9 % (20.0-44.0); MEAN CORPUSCULAR HEMOGLOBIN 29 PG (26.0-33.0); MEAN CORPUSCULAR HGB CONC 33 g/dl (31.0-36.0); MEAN CORPUSCULAR VOLUME 88 fL (82-100); MONOCYTES # (AUTO) 0.3 K/uL (0.1-1.30); MONOCYTES % (AUTO) 3.7 % (2.0-12.0); NEUTROPHILS # (AUTO) 6.7 K/uL (1.8-8.9); NEUTROPHILS % (AUTO) 75.9 % (43.0-81.0); PLATELET COUNT (AUTO) 158 K/uL (150-450); RED BLOOD CELL COUNT(AUTO) 4.12 MIL/uL (4.0-5.2); RED CELL DISTRIBUTION WIDTH 13.9 % (11.5-15.0); WHITE BLOOD COUNT (AUTO) 8.8 K/uL (4.3-11.0)
[2024-08-05 15:47] VITALS: BP 123/84; TEMP 98.6; O2SAT 98
[2024-08-05 20:00] VITALS: BP 105/60; TEMP 98.1; O2SAT 96
[2024-08-06 07:00] VITALS: BP 136/66; TEMP 98.2; O2SAT 98
[2024-08-06] MEDS: LEVOTHYROXINE SODIUM 75 MCG TABLET PO SCH (07:51)
[2024-08-06 16:00] VITALS: BP 155/68; TEMP 98.6; O2SAT 95
[2024-08-06 20:00] VITALS: BP 114/58; TEMP 98.6; O2SAT 96
[2024-08-07 06:26] LABS: BASOPHILS % (AUTO) 0.7 % (0.0-2.0); EOSINOPHILS # (AUTO) 0.6 K/uL (0.0-0.7); EOSINOPHILS % (AUTO) 8.8 % (0.0-6.0); HEMATOCRIT 37 % (33-45); HEMOGLOBIN 12.2 g/dL (11.5-14.8); LYMPHOCYTES # (AUTO) 1.7 K/uL (0.8-4.8); LYMPHOCYTES % (AUTO) 24.3 % (20.0-44.0); MEAN CORPUSCULAR HEMOGLOBIN 28 PG (26.0-33.0); MEAN CORPUSCULAR HGB CONC 33 g/dl (31.0-36.0); MEAN CORPUSCULAR VOLUME 87 fL (82-100); MONOCYTES # (AUTO) 0.5 K/uL (0.1-1.30); MONOCYTES % (AUTO) 7.6 % (2.0-12.0); NEUTROPHILS # (AUTO) 4.2 K/uL (1.8-8.9); NEUTROPHILS % (AUTO) 58.6 % (43.0-81.0); PLATELET COUNT (AUTO) 154 K/uL (150-450); RED BLOOD CELL COUNT(AUTO) 4.28 MIL/uL (4.0-5.2); RED CELL DISTRIBUTION WIDTH 14.1 % (11.5-15.0); WHITE BLOOD COUNT (AUTO) 7.1 K/uL (4.3-11.0)
[2024-08-07 06:38] LABS: BILIRUBIN,TOTAL 0.5 mg/dL (0.2-1.0); CALCIUM, SERUM 8.2 mg/dL (8.5-10.1); CREATININE 0.9 mg/dL (0.6-1.3); MAGNESIUM 1.9 mg/dL (1.8-2.4); PHOSPHORUS 3.2 mg/dL (2.5-4.9); POTASSIUM 3.9 mmol/L (3.5-5.1); TOTAL PROTEIN, SERUM 6.5 g/dL (6.4-8.2)
[2024-08-07 08:00] VITALS: BP 156/74; TEMP 98.4; O2SAT 94
[2024-08-07 08:32] VITALS: BP 156/75
[2024-08-07] MEDS: HYDROCODONE/APAP 5/325MG TABLET PO PRN (10:48)
== END 2024-08-07 16:10 | DRG 536 ==
LOC: ER 15:56 → MED 20:18
DX: S32.810A Multiple fractures of pelvis with stable disruption of pelvic ring, initial encounter for closed fracture (principal); K44.0 Diaphragmatic hernia with obstruction, without gangrene; I10 Essential (primary) hypertension; E78.5 Hyperlipidemia, unspecified; Y92.9 Unspecified place or not applicable; K21.9 Gastro-esophageal reflux disease without esophagitis; G89.4 Chronic pain syndrome; K22.4 Dyskinesia of esophagus; E89.0 Postprocedural hypothyroidism; Z79.899 Other long term (current) drug therapy; Z79.890 Hormone replacement therapy; F03.90 Unspecified dementia, unspecified severity, without behavioral disturbance, psychotic disturbance, mood disturbance, and anxiety; W18.39XA Other fall on same level, initial encounter
CPT/HCPCS: 36415; 71045-TC; 72192-TC; 80048-TC; 80053-TC; 83735-TC; 84100-TC; 84443-TC; 85025-TC; 85730-TC; 86850-TC; 97110-TC; 97116-TC; 97530-TC; G0378; J1650; J2270